=== PATIENT | female | born 1970 | race Caucasian/White ===

== ENCOUNTER 2022-04-12 19:23 | Emergency (ER) | payer MEDICARE ==
[2022-04-12 19:47] VITALS: PULSE 77; O2SAT 97
[2022-04-12] MEDS ORDERED: Hydromorphone 1 mg/ml Injection IM ONE (19:54)
[2022-04-12] MEDS ORDERED: Hydromorphone 1 mg/ml Injection ONE (20:08)
--- NOTE | 2022-04-12 20:24 | ERPHSYRPT ---
- History of Present Illness Time Seen by Provider: 04/12/22 19:53 Source: patient Exam Limitations: no limitations Patient Subjective Stated Complaint: Pt states "My knee has been hurting for a while. I think I tore something in there." Triage Nursing Assessment: Pt presents to ED in wheelchair, pt c/o L knee pain for "awhile", pt did not injury knee, pt goes to pain management for arthritis, pt took her norco 10 at 1830 with no relief, pt's L knee is swollen and tender Physician History: 51 years old female with history of psoriatic arthritis presented in the ER with chief complaint of left knee pain going on for quite some time and lately getting worse with some swelling making it difficult to ambulate because of pain. Denies any fall or trauma. No twisting or rotation movements/activities reported. No fever or chills reported. Method of Injury: unknown Occurred: other Quality: sharpness Severity of Pain-Max: severe Severity of Pain-Current: severe Lower Extremities Pain: knee: left Modifying Factors: Improves With: immobilization, pain medication. Worsens With: movement Associated Symptoms: No snapping sensation, No popping sensation Allergies/Adverse Reactions: Tetanus Vaccines and Toxoid Allergy (Mild, Verified 04/12/22 19:47) Home Medications: Apixaban [Eliquis 5 mg Tablet] 5 mg PO BID 04/12/22 [History] Atorvastatin Calcium [Lipitor] 80 mg PO DAILY 04/12/22 [History] Duloxetine HCl [Cymbalta] 60 mg PO DAILY 04/12/22 [History] Gabapentin 600 mg PO DAILY 04/12/22 [History] Hydrocodone/Acetaminophen [Hydrocodone-Acetamin 10-325 mg] 10 - 325 mg PO Q6HPRN PRN 04/12/22 [History] Omeprazole 40 mg PO DAILY 04/12/22 [History] Spironolactone 25 mg [Aldactone 25 MG] 25 mg PO DAILY 04/12/22 [History] Vericiguat [Verquvo] 5 mg PO DAILY 04/12/22 [History] Hx Tetanus, Diphtheria Vaccination/Date Given: No Hx Influenza Vaccination/Date Given: No Hx Pneumococcal Vaccination/Date Given: No Immunizations Up to Date: Yes Travel Risk - International Travel Have you traveled outside of the country in past 3 weeks: No - Coronavirus Screening Are you exhibiting any of the following symptoms?: No Close contact with a COVID-19 positive Pt in past 14-21 Days: No - Vaccine Status Have you recieved a Covid-19 vaccination: Yes Orthopedic Specialist: [facility] - Vaccination Dates Date of 2cond Vaccination (if applicable): 2020 - Review of Systems Respiratory: No Symptoms Cardiac: No Symptoms Abdominal/Gastrointestinal: No Symptoms Genitourinary Symptoms: No Symptoms Musculoskeletal: Arthralgias, Joint Pain, Joint Swelling Skin: No Symptoms Neurological: No Symptoms Endocrine: No Symptoms Hematologic/Lymphatic: No Symptoms Immunological/Allergic: No Symptoms - Past Medical History Pertinent Past Medical History: Yes Neurological History: No Pertinent History ENT History: No Pertinent History Cardiac History: Hypertension, Myocardial Infarction (NE) Respiratory History: No Pertinent History Endocrine Medical History: No Pertinent History Musculoskeletal History: Arthritis, Fibromyalgia GI Medical History: No Pertinent History History: No Pertinent History Psycho-Social History: No Pertinent History Female Reproductive Disorders: No Pertinent History - Past Surgical History Past Surgical History: Yes Neuro Surgical History: No Pertinent History Cardiac: Internal Defibrillator, Pacemaker Respiratory: No Pertinent History Gastrointestinal: No Pertinent History Genitourinary: No Pertinent History Musculoskeletal: Orthopedic Surgery Female Surgical History: No Pertinent History Other Surgical History: L shoulder - Social History Smoking Status: Current every day smoker Exposure to second hand smoke: No Drug Use: none Patient Lives Alone: No - Nursing Vital Signs Nursing Vital Signs: Initial Vital Signs Temperature 97.9 F 04/12/22 19:34 Pulse Rate 77 04/12/22 19:34 Respiratory Rate 16 04/12/22 19:34 Blood Pressure 160/82 04/12/22 19:34 O2 Sat by Pulse Oximetry 97 04/12/22 19:34 Pain Scale Pain Intensity 10 - Physical Exam General Appearance: no apparent distress, alert Eyes, Ears, Nose, Throat Exam: normal ENT inspection Neck Exam: normal inspection, supple, full range of motion Cardiovascular/Respiratory Exam: normal breath sounds, regular rate/rhythm Gastrointestinal/Abdominal Exam: non-tender, soft Back Exam: normal inspection Legs Exam: bilateral leg: non-tender, normal inspection, normal range of motion, no evidence of injury Knees Exam: right knee: non-tender, normal inspection, normal range of motion, left knee: bone tenderness (Generalized more on the medial aspect), joint effusion, pain, soft tissue tenderness, other (Limited range of motion), bilateral knee: no evidence of injury Ankle Exam: bilateral ankle: non-tender, normal inspection, normal range of motion Neuro/Tendon Exam: normal sensation Mental Status Exam: alert, oriented x 3, cooperative Skin Exam: normal color SpO2 Interpretation: normal SpO2: 97 O2 Delivery: Room Air Ordered Tests: Active Orders 24 hr Category Date Time Status KNEE (MIN 4 VIEW) Stat Exams 04/12/22 20:11 Taken Medication Summary Discontinued Medications Generic Name Dose Route Start Last Admin Trade Name Diane PRN Reason Stop Dose Admin Hydromorphone HCl 1 mg 04/12/22 19:54 04/12/22 20:09 Hydromorphone 1 Mg/1ml Inj 1 Mg/Ml Syringe IM 04/12/22 19:55 1 mg STAT ONE Administration Hydromorphone HCl Confirm 04/12/22 20:08 Hydromorphone 1 Mg/1ml Inj 1 Mg/Ml Syringe Administered 04/12/22 20:09 Dose 1 mg .ROUTE .STCabify-MED ONE - Progress Progress: improved, pain not gone completely Progress Note: 04/12/22 20:42 Given symptomatic treatment for pain, on reevaluation feeling better. X-rays no obvious fracture dislocation but soft tissue swelling with questionable cystlike changes at the back. Official report is pending. Recommended Phillip wrap which patient does not want and has at home. She wants to follow-up with Dr. Hernandez. Discussed signs symptoms of worsening needing return to ER which she seems understanding. Stable for discharge. Counseled pt/family regarding: diagnosis, need for follow-up, rad results - Departure Departure Disposition: Home Clinical Impression: Knee pain Qualifiers: Chronicity: unspecified Laterality: left Qualified Code(s): M25.562 - Pain in left knee Condition: Stable Critical Care Time: No Referrals: MARIAA ROJAS [Primary Care Provider] - Follow Up with PCP/3 days BERTO HERNANDEZ [NON-STAFF PHY W/O PRIVILEGES] - Follow up/PCP as directed Instructions: Knee Pain (DC) Additional Instructions: Take pain medication which you have at home as needed. Weightbearing as tolerated. Follow-up with orthopedic surgery for reevaluation in 1 to 2 days. Return to ER for any worsening of pain, swelling or if it is red hot, fever chills etc.
[2022-04-12 20:32] VITALS: BP 133/90
--- NOTE | 2022-04-13 09:09 | XRAY ---
Indication: Pain. No known injury. Comparison: None 4 view left knee demonstrates osteopenia and mild/moderate tricompartmental degenerative changes greatest medial compartment. No other bony, articular, or soft tissue abnormalities.
== END 2022-04-12 20:58 | disposition home or self-care (01) ==
LOC: ED 19:23
DX: M25.562 Pain in left knee (principal); I10 Essential (primary) hypertension; Z72.0 Tobacco use; Z79.01 Long term (current) use of anticoagulants; Z79.891 Long term (current) use of opiate analgesic; Z79.899 Other long term (current) drug therapy
CPT/HCPCS: 73564; 96372; 99284; J1170